=== PATIENT | female | born 1965 | race African-American/Black ===

== ENCOUNTER 2018-12-11 15:00 | Emergency (ER) | payer BC ==
[~2018-12-11] VITALS: Ht 157.5 cm; Wt 60.0 kg
[~2018-12-11 15:00] MED LIST: AMLODIPINE2.5 MG PO; BENADRYL 50MG C50 MG PO; HYDROCHLORO25 MG/TAB PO; HYDROCHLOROT25 MG PO; MEDDOSEPAK PO; PEPCID20 MG PO
[2018-12-11] MEDS ORDERED: LOVASTATIN20 M1 PO (15:15)
[2018-12-11] MEDS ORDERED: AMLODIPINE5 MG PO (15:15)
[2018-12-11] MEDS ORDERED: VITAMIN D350000 UNIT PO (15:15)
[2018-12-11 16:20] LABS: HEMATOCRIT 39.5 % (37.0-47.0); MEAN CELL VOLUME 87.8 fL CALC (80.0-100.0); MEAN CORPUSCULAR HGB 28.9 pG CALC (26.0-32.0); MEAN CORPUSCULAR HGB CONC 32.9 g/L CALC (32.0-36.0); NEUT# 1.98 thou/uL (2.00-7.15); RED BLOOD COUNT 4.5 mill/uL (4.20-5.60); RED CELL DISTRI WIDTH 11.9 % (11.5-15.5)
[2018-12-11 16:21] LABS: URINE BILIRUBIN - DIPSTICK NEGATIVE (NEGATIVE); URINE BLOOD DIPSTICK NEGATIVE (NEGATIVE); URINE COLOR YELLOW; URINE GLUCOSE - DIPSTICK NEGATIVE (NEGATIVE); URINE KETONE NEGATIVE (NEGATIVE); URINE LEUK ESTERASE NEGATIVE (NEGATIVE); URINE NITRITE - DIPSTICK NEGATIVE (Negative); URINE PH 5.5 (4.5-8.0); URINE PROTEIN - DIPSTICK NEGATIVE (NEG-TRACE); URINE UROBILINOGEN - DIPSTICK 0.2 E.U./dL (0.2)
[2018-12-11 16:30] LABS: ALKALINE PHOSPHATASE 84 u/l (38-126); ANION GAP 14 (6-22 (CALC)); BILIRUBIN, TOTAL 0.8 mg/dL (0.0-1.4); BUN 19 mg/dL (7-17); BUN/CREATININE RATIO 28 (12-20 (CALC)); CARBON DIOXIDE 30 mmol/l (22-30); CHLORIDE 102 mmol/l (95-108); CREATININE 0.7 mg/dL (0.5-1.0); GFR > 60 ML/MIN (>=60 (CALC)); GFR FOR AFR.AMER. > 60 ML/MIN (>=60 (CALC)); POTASSIUM 3.7 mmol/l (3.5-5.1); SGOT/AST 27 u/l (14-36); SODIUM 142 mmol/l (137-146)
[2018-12-11 16:35] LABS: ALBUMIN 4.9 g/dL (3.2-5.0)
[2018-12-11 17:01] LABS: TSH, 3RD GENERATION 1.01 uIU/mL (0.47 - 4.68)
[2018-12-11 17:38] VITALS: BP 144/96
== END 2018-12-11 17:38 | disposition home or self-care (01) | DRG 149 ==
LOC: ED 15:00
PROVIDERS: Emergency Medicine
DX: R42 Dizziness and giddiness (principal); I10 Essential (primary) hypertension; E78.5 Hyperlipidemia, unspecified

== ENCOUNTER 2022-02-17 09:30 | Emergency (ER) | payer BC ==
[~2022-02-17] VITALS: Ht 157.5 cm; Wt 55.0 kg
[~2022-02-17 09:30] MED LIST changes: +ACIPHEX20 M1 PO; +AMLODIPINE5 MG PO; +LOVASTATIN20 M1 PO; +NORVASC5 M1 PO; +SUCRALFATE1 GM PO; +VITAMIN D350000 UNIT PO
[2022-02-17 09:38] VITALS: BP 152/97
[2022-02-17 09:45] VITALS: BP 141/91
[2022-02-17 10:01] VITALS: BP 145/103
[2022-02-17 10:15] VITALS: BP 154/99
[2022-02-17] MEDS ORDERED: MEDDOSEPAK PO (10:24)
[2022-02-17] MEDS ORDERED: DIPHENHYDRAM50 M2 PO (10:24)
[2022-02-17] MEDS ORDERED: PEPCID20 MG PO (10:24)
[2022-02-17 10:27] VITALS: BP 154/99
== END 2022-02-17 10:34 | disposition home or self-care (01) | DRG 916 ==
LOC: ED 09:30
DX: T78.40XA Allergy, unspecified, initial encounter (principal)